=== PATIENT | female | born 1950 | race Caucasian/White ===

== ENCOUNTER 2023-03-15 07:41 | Outpatient (CLI) | payer MEDICARE, SELFPAY | END 2023-03-15 07:42 | disposition home or self-care (01) | LOC: ANHAUDASC 07:43 | PROVIDERS: PCP Internal Medicine; Visit Provider Clinical Nurse Specialist | DX: H90.3 Sensorineural hearing loss, bilateral (principal) | CPT/HCPCS: 92557; 92567 ==

== ENCOUNTER 2023-10-09 09:07 | Outpatient (CLI) | payer MEDICARE, SELFPAY ==
--- NOTE | ~2023-10-09 | XR_ITS ---
Left foot Technique: AP and lateral views were obtained. Clinical History: Pain Findings: No acute fracture or dislocation is seen. Osseous alignment is anatomic. Joint spaces are p reserved without erosive or degenerative change. Soft tissues are unremarkable. Impression: Unremarkable left foot radiographs. Reviewed, dictated and finalized at [facility]. Impression: Unremarkable left foot radiographs.
--- NOTE | ~2023-10-09 | XR_ITS ---
XR foot RT 2V Ordering provider: Bing Lau APRN History: . Pain and stifness, 1st digit into foot, no known injury . Comparison: None. FINDINGS: BONES: No acute fracture or dislocation. JOINT SPACES: Mild osteoarthritic changes of the facets metatarsophalangeal joint. No tarsal coalitio n. SOFT TISSUES: Minimal soft tissue swelling is seen over the first metatarsophalangeal joint. No erosi on seen. IMPRESSION: No acute osseous abnormality of the right foot. Mild osteoarthritic changes of the first metatarsopha langeal joint. Reviewed, dictated and finalized at [facility]. IMPRESSION: No acute osseous abnormality of the right foot. Mild osteoarthritic changes of the first metatarsophalangeal joint.
[2023-10-09 20:18] LABS: Uric Acid 7.6 mg/dL (2.5-7.5)
== END 2023-10-09 09:08 | disposition home or self-care (01) ==
PROVIDERS: PCP Nurse Practitioner Adult Health; Visit Provider Nurse Practitioner Adult Health
DX: M19.071 Primary osteoarthritis, right ankle and foot (principal); M79.672 Pain in left foot
CPT/HCPCS: 36415; 73620; 84550

== ENCOUNTER 2024-05-27 07:52 | Outpatient (CLI) | payer MEDICARE, SELFPAY ==
[2024-05-27 20:07] LABS: Basophils Percent Auto 0.5 % (0.2-1.2); Eosinophils Absolute Auto 0.2 K/mm3 (0-0.3); Eosinophils Percent Auto 2.4 % (0-4.4); Hematocrit 41.1 % (37.0-47.0); Hemoglobin 13.4 g/dL (12.0-15.0); Immature Granulocyte Absolute 0.01 K/mm3 (0.00-0.031); Immature Granulocyte Percent A 0.1 % (0-0.5); Lymphocytes Absolute Auto 2.94 K/mm3 (0.9-3.2); Lymphocytes Percent Auto 39.7 % (18.3-44.2); Mean Corpuscular HGB Conc 32.6 g/dl (32-36); Mean Corpuscular Hemoglobin 32.4 pg (26-34); Mean Corpuscular Volume 99.5 fl (80-100); Mean Platelet Volume 10.8 fl (7.4-10.4); Monocytes Absolute Auto 0.6 K/mm3 (0.1-0.6); Monocytes Percent Auto 7.6 % (2.6-8.5); Neutrophils Absolute Auto 3.7 K/mm3 (1.3-6.7); Neutrophils Percent Auto 49.7 % (45.5-73.1); Platelet Count Result 228 k/mm3 (150-375); Red Blood Count 4.13 M/mm3 (4.2-5.4); Red Cell Distribution Width 13.1 % (11.5-14.5); White Blood Count 7.4 K/mm3 (4.5-10.0)
[2024-05-27 20:17] LABS: Alanine Aminotransferase 26 U/L (6-35); Albumin Level 4.2 g/dL (3.5-5.1); Alkaline Phosphatase 70 U/L (38-126); Anion Gap 11 mmol/L (4-12); Aspartate Amino Transferase 43 U/L (14-36); Blood Urea Nitrogen 16 mg/dL (7-17); Calcium 9.5 mg/dL (8.4-10.2); Carbon Dioxide 23 mmol/L (22-30); Chloride 105 mmol/L (98-107); Cholesterol 221 mg/dL (0-200); Estimated Glomerular Filt Rate 60; Glucose 104 mg/dL (65-110); HDL Direct 53 mg/dL; Magnesium 2.3 mg/dL (1.6-2.3); Potassium 4.8 mmol/L (3.4-5.0); Sodium 139 mmol/L (137-145); Triglycerides 150 mg/dL (<150)
[2024-05-27 20:27] LABS: LDL Cholesterol Direct 125 mg/dL
[2024-05-27 21:23] LABS: Lactate Dehydrogenase 105 U/L (120-246)
[2024-05-28 07:12] LABS: Total Triiodothyronine (T3) 1.05 NG/ML (0.97-1.69)
--- OUTSIDE RECORDS SUMMARY | 2024-05-29 15:51 | XMS_ITS | Patient Health Summary ---
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 This disclosure is being madepursuant to the Care Everywhere program and may not contain all information available regarding this patient. Last updated 18.[facility] Allergies * Morphine(Nausea and/or Vomiting) Medications * Be aware that medications may not be up to date on this document. Alwaysverify current medications with the patient. * lisinopril (PRINIVIL; ZESTRIL) 20 MG tablet(Started 05/16/2019) Take 1 (one) tablet by mouth once daily * lovastatin (MEVACOR) 20 MG tablet(Started 05/16/2019) Take 1 (one) tablet by mouth once daily * aspirin EC (Ecotrin) 81 MG tablet(Started 06/15/2022) Take 1 (one) tablet by mouth once daily * Cholecalciferol 25 MCG (1000 UT) once daily * pantoprazole EC (Protonix) 40 MG tablet(Started 12/26/2022) * allopurinol (Zyloprim) 100 MG tablet(Started 12/03/2023) Take 1 (one) tablet by mouth once daily * metoprolol succinate XL 24hr (Toprol XL) 25 MG tablet(Started 12/06/2022) * meloxicam (Mobic) 15 MG tablet(Started 01/08/2024) Take 1 (one) tablet by mouth once daily 5 refills by 01/07/2025 Active Problems Problem Noted Date Diagnosed Date CLL (chronic lymphocytic leukemia) 05/18/2020 Coronary artery disease 04/26/2020 Chronic viral hepatitis B 04/23/2020 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 GERD (gastroesophageal reflux disease) 0 Dyslipidemia 06/08/2016 Hypertension 06/08/2016 Social History Tobacco Use Types Packs/Day Years Used Date Smoking Tobacco: Former Cigarettes 2 20 Smokeless Tobacco: Never Tobacco Cessation:Counseling Given: Not Answered Comments:QUIT 30 YEARS AGO Alcohol Use Standard Drinks/Week Comments Yes 12 (1 standard drink = 0.6 oz pu re alcohol) 2-3 beers daily PHQ-2 Answer Date Recorded Patient Health Questionnaire-2 Score 2 01/08/2024 Sex and Gender Information Value Date Recorded Sex Assigned at Female 06/25/2023 1:33 PM MAINTENANCE AND ENGINEERING MANAGER Gender Identity Female 06/25/2023 1:33 PM MAINTENANCE AND ENGINEERING MANAGER Sexual Orientation Straight 06/25/2023 1: 33 PM MAINTENANCE AND ENGINEERING MANAGER Last Filed Vital Signs Vital Sign Reading Time Taken Comments Blood Pressure 125/79 06/25/2023 1:17 PM MAINTENANCE AND ENGINEERING MANAGER Pulse 73 06/25/2023 1:17 PM MAINTENANCE AND ENGINEERING MANAGER Temperature 36.6 ??C (97.8 ??F) 06/25/2023 1:17 PM CS T Respiratory Rate 12 07/03/2022 1:09 PM MAINTENANCE AND ENGINEERING MANAGER Oxygen Saturation 99% 06/25/2023 1:17 PM MAINTENANCE AND ENGINEERING MANAGER Inhaled Oxygen Concentration - - Weight 75.3 kg (166 lb) 01/08/2024 2:52 PM CDT Height 162.6 cm (5' 4 ) 01/08/2024 2:52 PM CDT Body Mass Index 28.49 01/08/2024 2:52 PM CDT Procedures * HEPATITIS B SURFACE ANTIGEN CONFIRM RFLXED(Performed 06/27/2021) Performed for Chronic viral hepatitis B, Fatty liver (EtOH + COLÓN risks), Encounter for screening for other viral diseases * HEPATITIS B DNA QUANT(Performed 06/27/2021) Performed for Chronic viral hepatitis B, Fatty liver (EtOH + COLÓN risks) * HEPATITIS C ANTIBODY(Performed 06/27/2021) Performed for Chronic viral hepatitis B, Fatty liver (EtOH + COLÓN risks) * HEPATITIS B SURFACE ANTIBODY(Performed 06/27/2021) Performed for Chronic viral hepatitis B, Fatty liver (EtOH + COLÓN risks), Encounter for screening for other viral diseases * HEPATITIS B SURFACE ANTIGEN W RFLX CONFIRMATION(Performed 06/27/2021) Performed for Chronic viral hepatitis B, Fatty liver (EtOH + COLÓN risks), Encounter for screening for other viral diseases * HEPATITIS A ANTIBODY(Performed 06/27/2021) Performed for Chronic viral hepatitis B, Fatty liver (EtOH + COLÓN risks) * ALPHA FETOPROTEIN BLOOD TUMOR MARKER(Performed 06/27/2021) Performed for Chronic viral hepatitis B, Fatty liver (EtOH + COLÓN risks) * PT-INR [facility](Performed 06/27/2021) Performed for Chronic viral hepatitis B, Fatty liver (EtOH + COLÓN risks) * COMPREHENSIVE METABOLIC PANEL(Performed 06/27/2021) Performed for Chronic viral hepatitis B, Fatty liver (EtOH + COLÓN risks) * CBC W AUTO DIFFERENTIAL(Performed 06/27/2021) Performed for Chronic viral hepatitis B, Fatty liver (EtOH + COLÓN risks) * NEEDLE BIOPSY, LIVER(Performed 05/25/2020) * PATHOLOGY TISSUE(Performed 05/25/2020) Performed for Fatty liver * BIOPSY LIVER (NEEDLE/PERCUTANEOUS)(Performed 05/25/2020) Performed for Fatty liver * FLOW CYTOMETRY TISSUE PANEL(Performed 05/17/2020) Performed for Localized swelling, mass and lump, neck * HEPATITIS B DNA QUANT(Performed 04/26/2020) Performed for Chronic hepatitis, unspecified * [id number]-[id number] BLOOD PHENOTYPING PANEL(Performed 04/26/2020) Performed for Fatty liver (EtOH + COLÓN risks) * TRANSFERRIN(Performed 04/26/2020) Performed for Fatty liver (EtOH + COLÓN risks) * IRON BLOOD(Performed 04/26/2020) Performed for Fatty liver (EtOH + COLÓN risks) * ALPHA FETOPROTEIN BLOOD TUMOR MARKER(Performed 04/26/2020) Performed for Chronic hepatitis, unspecified , Fatty liver (EtOH + COLÓN risks) * BILIRUBIN DIRECT(Performed 04/26/2020) Performed for Fatty liver (EtOH + COLÓN risks) * PT-INR [facility](Performed 04/26/2020) Performed for Fatty liver (EtOH + COLÓN risks) * COMPREHENSIVE METABOLIC PANEL(Performed 04/26/2020) Performed for Fatty liver (EtOH + COLÓN risks) * CBC W AUTO DIFFERENTIAL(Performed 04/26/2020) Performed for Fatty liver (EtOH + COLÓN risks) * HEPATITIS DELTA ANTIBODY(Performed 04/26/2020) Performed for Fatty liver (EtOH + COLÓN risks) * NM LIVER ELASTOGRAPHY(Performed 04/26/2020) Performed for Fatty liver (EtOH + COLÓN risks), Chronic hepatitis, unspecified * NM LIVER ELASTOGRAPHY(Performed 11/22/2018) Performed for Chronic viral hepatitis B without coma and with delta agent (HCC) Results * PT-INR [facility] (06/27/2021 2:54 PM MAINTENANCE AND ENGINEERING MANAGER) Only the most recent of2 resultswithin the time period is included. PT 12.7 12.1 - 14.8 Seconds 06/27/2021 3:38 PM MAINTENANCE AND ENGINEERING MANAGER [facility] INR 1.0 See Comment 06/27/2021 3:38 PM MAINTENANCE AND ENGINEERING MANAGER [facility] Comment:The suggested therap eutic range for standard coumadin (warfarin) therapy is an INR of 2.0-3.0. For high-risk patients (Mechanical Mitral Valve Prosthesis, etc.), the suggested prophylactic therapeutic range is an INR of 2.5-3.5. Blood BLOOD SPECIMEN / Unknown Lab Venipuncture / Unknown 06/27/2021 2:54 PM MAINTENANCE AND ENGINEERING MANAGER 06/27/2021 3:20 PM MAINTENANCE AND ENGINEERING MANAGER Wesley Johnson MD LAB - COAG ULATION ORDERABLES Performing Organization Address [facility]/State/ZIP Co de Phone Number [facility] [address] [address], [facility] [phone] * (ABNORMAL) HEPATITIS B SURFACE ANTIGEN CONFIRM RFLXED (06/27/2021 2:54 PM MAINTENANCE AND ENGINEERING MANAGER) Hepatitis B Virus Surface Antigen Confirm Confirmed Reactive(A) Not Confirmed 06/28/2021 12:42 PM MAINTENANCE AND ENGINEERING MANAGER [facility] Blood BLOOD SPECIMEN / Unknown Lab Venipuncture / Unknown 06/27/2021 2:54 PM MAINTENANCE AND ENGINEERING MANAGER 06/27/2021 3:20 PM MAINTENANCE AND ENGINEERING MANAGER Wesley Johnson MD LAB - CHEM ISTRY ORDERABLES [facility] [id number] [place] [address], [facility] [phone] * (ABNORMAL) HEPATITIS B DNA QUANT (06/27/2021 2:54 PM MAINTENANCE AND ENGINEERING MANAGER) Only the most recent of2 resultswithin the time period is included. HBV Qnt by NAAT Interp Detected (A) Not Detected 06/30/2021 8:26 PM MAINTENANCE AND ENGINEERING MANAGER [employer] ([facility]) Comment: INTERPRETIVE INFORMATION: HBV by Quantitative NAAT Normal range for this assay is Not Detected . The quantitative range of this assay is 1.00-9.00 log IU/mL (10-1,000,000,000 IU/mL). An interpretation of Not Detected does not rule out the presence of inhibitors in the patient specimen or HBV DNA concentration below the level of detection of the test. Care should be taken when interpreting any single viral load determination. This assay should not be used for blood donor screening, associated re-entry protocols, or for screening Human Cell, Tissues and Cellular Tissue-Based Products (HCT/P). HBV Qnt by NAAT IU/mL 178 IU/mL 06/30/2021 8:26 PM MAINTENANCE AND ENGINEERING MANAGER [employer] ([facility]) HBV Qnt by NAAT log IU/mL 2.25 log IU/mL 06/30/2021 8:26 PM MAINTENANCE AND ENGINEERING MANAGER [employer] ([facility]) Comment: Performed by [employer], [address] [place] [address] [email or web address], Gely Salgado MD, Lab. Director Blood BLOOD SPECIMEN / Unknown Lab Venipuncture / Unknown 06/27/2021 2:54 PM MAINTENANCE AND ENGINEERING MANAGER 06/27/2021 3:20 PM MAINTENANCE AND ENGINEERING MANAGER Wesley Johnson MD LAB - CHEM ISTRY ORDERABLES [employer]) [address] * ALPHA FETOPROTEIN BLOOD TUMOR MARKER (06/27/2021 2:54 PM MAINTENANCE AND ENGINEERING MANAGER) Only the most recent of2 resultswithin the time period is included. [facility] Alpha-Fetoprote in Tumor Marker 6.1 <=8.3 ng/mL 06/27/2021 4:09 PM [facility] Comment: AFP values will vary depending on testing procedure used. Results are not comparable across different methods. AFP values obtained by [facility] using an Mccauley Alinity Immunoassay. Blood BLOOD SPECIMEN / Unknown Lab Venipuncture / Unknown 06/27/2021 2:54 PM MAINTENANCE AND ENGINEERING MANAGER 06/27/2021 3:27 PM MAINTENANCE AND ENGINEERING MANAGER Wesley Johnson MD LAB - CHEM ISTRY ORDERABLES [address] [address], [facility] [phone] * (ABNORMAL) CBC WITH DIFFERENTIAL (06/27/2021 2:54 PM MAINTENANCE AND ENGINEERING MANAGER) Only the most recent of2 resultswithin the time period is included. [facility] WBC 8.4 3.5 - 10.5 10? 3 /uL 06/27/2021 3:36 PM [facility] RBC 4.42 3.80 - 5.20 10? 6 /uL 06/27/2021 3:36 PM [facility] Hemoglobin 14.4 12.0 - 15.6 g/dL 06/27/2021 3:36 PM [facility] Hematocrit 43.1 35.0 - 45.0 % 06/27/2021 3:36 PM [facility] MCV 97.5 80.7 - 98.3 fL 06/27/2021 3:36 PM [facility] MCH 32.6 26.7 - 34.0 pg 06/27/2021 3:36 PM [facility] MCHC 33.4 30.8 - 35.9 g/dL 06/27/2021 3:36 PM [facility] Platelet Count 219 150 - 400 10? 3 /uL 06/27/2021 3:36 PM [facility] RDW-SD 45.2 36.0 - 50.0 fL 06/27/2021 3:36 PM [facility] RDW-CV 12.7 11.2 - 14.8 % 06/27/2021 3:36 PM [facility] MPV 10.3 9.4 - 12.9 fL 06/27/2021 3:36 PM [facility] nRBC Absolute 0.00 0 10? 3 /uL 06/27/2021 3:36 PM [facility] nRBC Auto 0.0 0 /100 WBC 06/27/2021 3:36 PM [facility] Neutrophils % 43.9 35.0 - 70.0 % 06/27/2021 3:36 PM [facility] Lymphocytes % 45.8(H) 20.0 - 43.0 % 06/27/2021 3:36 PM [facility] Monocytes % 8.4 5.0 - 13.0 % 06/27/2021 3:36 PM [facility] Eosinophils % 1.3 0.0 - 6.0 % 06/27/2021 3:36 PM [facility] Basophil % 0.5 0.0 - 2.0 % 06/27/2021 3:36 PM [facility] Neutrophils Absolute 3.7 1.6 - 7.0 10? 3 /uL 06/27/2021 3:36 PM [facility] Lymphocyte Absolute 3.8 1.1 - 3.9 10? 3 /uL 06/27/2021 3:36 PM [facility] Monocytes Absolute 0.70 0.26 - 1.07 10? 3 /uL 06/27/2021 3:36 PM [facility] Eosinophils Absolute 0.11 0.00 - 0.47 10? 3 /uL 06/27/2021 3:36 PM [facility] Basophils Absolute 0.04 0.00 - 0.08 10? 3 /uL 06/27/2021 3:36 PM [facility] Immature Granulocytes % 0.1 0.0 - 1.0 % 06/27/2021 3:36 PM [facility] Immature Granulocytes Absolute 0.01 06/27/2021 3:36 PM [facility] Blood BLOOD SPECIMEN / Unknown Lab Venipuncture / Unknown 06/27/2021 2:54 PM MAINTENANCE AND ENGINEERING MANAGER 06/27/2021 3:27 PM MAINTENANCE AND ENGINEERING MANAGER Wesley Johnson MD LAB - ARSEN TOLOGY ORDERABLES [facility] [address] [place] [address], [facility] [phone] * (ABNORMAL) COMPREHENSIVE METABOLIC PANEL (06/27/2021 2:54 PM MAINTENANCE AND ENGINEERING MANAGER) Only the most recent of2 resultswithin the time period is included. BUN 12 7 - 26 mg/dL 06/27/2021 3:54 PM [facility] Creatinine 1.00(H) 0.56 - 0.96 mg/dL 06/27/2021 3:54 PM [facility] Sodium 141 136 - 145 mmol/L 06/27/2021 3:54 PM [facility] Potassium 4.6(H) 3.5 - 4.5 mmol/L 06/27/2021 3:54 PM [facility] Chloride 107 98 - 107 mmol/L 06/27/2021 3:54 PM [facility] CO2 25 22 - 29 mmol/L 06/27/2021 3:54 PM [facility] Glucose 101 70 - 115 mg/dL 06/27/2021 3:54 PM [facility] Calcium 9.8 8.4 - 10.2 mg/dL 06/27/2021 3:54 PM [facility] Protein Total 7.1 6.0 - 8.3 g/dL 06/27/2021 3:54 PM [facility] Albumin 4.0 3.4 - 5.0 g/dL 06/27/2021 3:54 PM [facility] Bilirubin Total 0.8 0.2 - 1.2 mg/dL 06/27/2021 3:54 PM [facility] Alkaline Phosphatase 73 40 - 150 U/L 06/27/2021 3:54 PM [facility] ALT 45 5 - 55 U/L 06/27/2021 3:54 PM [facility] AST 38(H) 5 - 34 U/L 06/27/2021 3:54 PM [facility] Anion Gap 14 8 - 18 06/27/2021 3:54 PM [facility] BUN/Creatinine Ratio 12 7 - 23 06/27/2021 3:54 PM [facility] Osmolality Calculated 292 270 - 300 mOsm/kg 06/27/2021 3:54 PM [facility] Albumin/Globulin Ratio 1.3 1.1 - 2.3 06/27/2021 3:54 PM [facility] eGFR by CKD-EPI 60(L) >=90 mL/min/1.7 3 m2 06/27/2021 3:54 PM [facility] Blood BLOOD SPECIMEN / Unknown Lab Venipuncture / Unknown 06/27/2021 2:54 PM MAINTENANCE AND ENGINEERING MANAGER 06/27/2021 3:27 PM [facility] Wesley Johnson MD LAB - CHEM ISTRY ORDERABLES [facility] [address] [place] [address], [facility] [phone] * HEPATITIS B SURFACE ANTIBODY (06/27/2021 2:54 PM [facility]) Hepatitis B Virus Surface Antibody Non-react dickson Non-react dickson 06/27/2021 4:17 PM [facility] Comment: < 8 mIU/mL Hepatitis B surface Antibody (HBsAb). Nonreactive for HBsAb - individual is considered not immune to Hepatitis B Virus infection. Hepatitis B Surface Antibody Quantitative 0.2 <8.0 mIU/mL 06/27/2021 4:17 PM [facility] Comment: Hepatitis B Surface Antibody Numeric Result Interpretation: ? Nonreactive: ?<8.0 mIU/mL ? Indeterminate: ??8.0 - 12.0 mIU/mL ? Reactive: ?>12.0 mIU/mL ? Blood BLOOD SPECIMEN / Unknown Lab Venipuncture / Unknown 06/27/2021 2:54 PM MAINTENANCE AND ENGINEERING MANAGER 06/27/2021 3:20 PM MAINTENANCE AND ENGINEERING MANAGER Wesley Johnson MD LAB - CHEM ISTRY ORDERABLES Performing Organization Address City/[facility]/ZIP Co de Phone Number [address] [address], [place] [phone] * (ABNORMAL) HEPATITIS B SURFACE ANTIGEN W RFLX CONFIRMATION (06/27/2021 2:54 PM MAINTENANCE AND ENGINEERING MANAGER) Hepatitis B Virus Surface Antigen See Note(A) Non-react dickson 06/27/2021 4:58 PM MAINTENANCE AND ENGINEERING MANAGER [facility] Comment:Hepatitis B Surface Antigen confirmatory results to follow. Blood BLOOD SPECIMEN / Unknown Lab Venipuncture / Unknown 06/27/2021 2:54 PM MAINTENANCE AND ENGINEERING MANAGER 06/27/2021 3:20 PM MAINTENANCE AND ENGINEERING MANAGER Wesley Johnson MD LAB - CHEM ISTRY ORDERABLES Performing Organization Address [facility] Co de Phone Number [address] [address], [place] [phone] * HEPATITIS C ANTIBODY (06/27/2021 2:54 PM MAINTENANCE AND ENGINEERING MANAGER) Hepatitis C Antibody Non-react dickson Non-reac tive 06/27/2021 4:17 PM MAINTENANCE AND ENGINEERING MANAGER [facility] Comment:Hepatitis C Antibody screen indicates no serologic evidence of past or current infection with Hepatitis C Virus. Patients with unexplained liver disease who are immunocompromised or suspected of having acute Hepatitis C infection may benefit from Nucleic Acid Test (SALINAS) for Hepatitis C Viral RNA to confirm Hepatitis C status. Blood BLOOD SPECIMEN / Unknown Lab Venipuncture / Unknown 06/27/2021 2:54 PM MAINTENANCE AND ENGINEERING MANAGER 06/27/2021 3:20 PM MAINTENANCE AND ENGINEERING MANAGER Wesley Johnson MD LAB - CHEM ISTRY ORDERABLES Performing Organization Address City/[facility]/ZIP Co de Phone Number [address] [address], [place] [phone] * (ABNORMAL) HEPATITIS A ANTIBODY (06/27/2021 2:54 PM MAINTENANCE AND ENGINEERING MANAGER) Hepatitis A Virus Antibody Total Positive( A) Negative 06/29/2021 6:53 PM MAINTENANCE AND ENGINEERING MANAGER [employer] ([facility]) Comment: The positive anti-HAV is consistent with recent or remote Hepatitis A infection or antibody response to HAV vaccination. False positive anti-HAV can occur. Performed by [employer], [address] [place] [address] [email or web address], Gely Salgado MD, Lab. Director Blood BLOOD SPECIMEN / Unknown Lab Venipuncture / Unknown 06/27/2021 2:54 PM MAINTENANCE AND ENGINEERING MANAGER 06/27/2021 3:20 PM MAINTENANCE AND ENGINEERING MANAGER Wesley Johnson MD LAB - CHEM ISTRY ORDERABLES Performing Organization Address City/State/[facility] Co de Phone Number [employer] ([facility]) [address] [place] [address], [facility] * NEEDLE BIOPSY, LIVER (05/25/2020 9:18 AM MAINTENANCE AND ENGINEERING MANAGER) Narrative [facility] - 05/25/2020 9:18 AM MAINTENANCE AND ENGINEERING MANAGER Wesley Henderson MD ? 05/25/2020 ??9:19 AM ??PERCUTANEOUS LIVER BIOPSY PROCEDURE NOTE Patient Name: Michelle Sinha ??Date: 05/25/2020 Time: 9:19 AM Attending: Wesley Henderson MD Fellow: None Diagnosis/Indication: ??COLÓN risks, EtOH use, chronic HBV, elevated liver stiffness Location: Endoscopy Admission Status: Outpatient PERMIT The indications, risks, benefits and alternatives, as described below, were explained to the patient who agreed to proceed. Signed, informed consent was obtained. ?? Possible risks of liver biopsy include: ? Bleeding- risk of hemodynamically significant bleed requiring blood transfusion or surgery is approximately 1:1,000 ?? Perforation (gallbladder, lung, bowel, kidney, other) the risk of perforation is less than 1:1,000 ?? Severe pain after biopsy, including referred shoulder pain; the risk of pain requiring analgesics is approximately 1:4. PROCEDURE DESCRIPTION The patient was placed in the supine position. The liver was palpated and percussed and an appropriate intercostal location was identified. Ultrasound Limited abdominal ultrasound for localization was performed. Comments: The liver was noted to be in a good position. The area was then prepped and draped in the usual sterile manner. 15 ml 1% lidocaine was used as a local anesthetic. Intravenous anxiolytic Versed 0 mg IV ? Fentanyl 0 mcg IV Biopsy performed after an endoscopic procedure: No. Instrument 16 G BioPince set at 33 mm (27 mm core) Adequate tissue was obtained using 1 pass from the right lobe. Procedure tolerated Well. Additional Comments ?? Post procedure pain medication Oxycodone/acetaminophen 5/325 x 1-2 tabs prn Fentanyl 50 mcg IV q 30 min prn Immediate procedure complications ?? Tissue was sent for: Routine histology. Fixation time: approximately 10 minutes before 9:19 AM. Follow-up appointment: As scheduled. I personally performed this procedure. I was present for all portions of this procedure. Wesley Henderson MD Wesley Johnson MD GI PROCEDU RE ORDERABLES [facility] * PATHOLOGY TISSUE (05/25/2020 9:17 AM MAINTENANCE AND ENGINEERING MANAGER) Case Report Surgical Pathology Report ? Case: [id number] ? Authorizing Provider: ??Wesley Henderson MD ? Collected: ? 05/25/2020 09:17 AM ? Ordering Location: ? [facility] END[facility] ?Received: ?05/25/2020 11:08 AM ? Pathologist: ? Susanne Dueñas MD ? Specimen: ?Liver, liver biopsy ? 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 There is moderate lobular inflammation (grade 2, 2-4 foci/20x field). Rare ballooned hepatocytes are present (grade 1) but classic Ivett-Denk bodies are not readily identified. Portal tracts are remarkable for a monomorphic lymphocytic infiltrate of small mature-appearing lymphocytes. The clinical history of HBV is noted, though the typical lymphocytic infiltrate with interface activity seen in active viral hepatitis is not appreciated; an immunostain for HBV surface antigen is negative. Additional immunostains were performed to assess the monomorphic portal infiltrate, and show the cells to be mostly CD20+ B cells, with only scattered CD3 + T cells; CD5 is positive in the B cell population (not simply expressed on T cells). Cyclin D1 and SOX11 are negative. 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 Dr. Yoon has reviewed the portal involvement by lymphoma and agrees with the diagnosis. The trichrome stain highlights zone 3 perisinusoidal fibrosis, somewhat dense in areas. Portal tracts are expanded by the lymphoid infiltrate, but true periportal extension is not seen. The reticulin stain shows foci of condensation and reticulin loss due to steatosis. The PAS-D stain is negative for dlvxx-9-kgxnriehlyd globules. The iron stain is negative. The steatosis, lobular inflammation, and ballooning, along with characteristic central perisinusoidal fibrosis are diagnostic for steatohepatitis--alco holic or nonalcoholic. In the clinical context of COLÓN, the NAFLD activity score would be 4/8, stage 1b. 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 05/27/2020 3:51 PM [facility] Clinical History The patient is a 69 year old woman with a history HBV, alcohol use, COLÓN risk and increased liver stiffness on fibroscan. There is also a history of clonal CD5+ B cells in a neck mass. 05/27/2020 3:51 PM [facility] Gross Description The requisition and specimen(s) are labeled with the patient's name, Michelle Sinha. Received in formalin, specimen A , is a brown-hickman tissue core measuring 2.8 x 0.1 x 0.1 cm. Specimen is submitted in toto in cassette A1. OW 05/27/2020 3:51 PM [facility] Disclaimer The performance characteristics of all immunohistochemical and indirect immunofluorescence stains (if any) cited in this report were determined by the Histopathology Laboratory of [facility]. Some of these tests were developed by our own laboratory and have not been cleared or approved by the US Food and Drug Administration. The FDA does not require this test to go through premarket FDA review. These tests are used for clinical purposes. They should not be regarded as investigational or for research. This laboratory is certified under the Clinical Laboratory Improvement Amendments (CLIA) as qualified to perform high complexity clinical laboratory testing. This case has been personally reviewed and interpreted by the attending (teaching) pathologist. 05/27/2020 3:51 PM [facility] Embedded Images 05/27/2020 3:51 PM [facility] Biopsy, Needle ENTIRE LIVER / Unknown 05/25/2020 9:17 AM MAINTENANCE AND ENGINEERING MANAGER 05/25/2020 11:08 AM MAINTENANCE AND ENGINEERING MANAGER Comment:Pre-op diagnosis: K76.0 Fatty liver (EtOH + COLÓN risks) Wesley Johnson MD LAB - PATH OLOGY/CYTOLOGY ORDERABLES [facility] [address] [place] [address], [facility] [phone] * FLOW CYTOMETRY TISSUE PANEL (05/17/2020 10:10 AM [facility]) Case Report Flow Cytometry ?Case: [id number] ? Authorizing Provider: ??Gilmer Soto MD ? Collected: ? 05/17/2020 10:10 AM ? Ordering Location: ? [facility] ? Received: ?05/17/2020 02:16 PM ? Pathologist: ? Davey Moses MD ? Specimen: ?Tissue, Soft Tissue Mass ? 1 9:41 AM [facility] Final Diagnosis Tissue, soft tissue mass, neck, flow cytometry: - Clonal kappa restricted CD5+ B-cell population detected (~58% of total events) 1 9:41 AM [facility] Flow Cytometry Interpretation Viability: 100%. Flow cytometry of the neck soft tissue mass reveals a clonal, kappa light chain restricted B-cell population co-expressing CD5. CD23 and CD10 are not expressed. This immunophenotype may indicate a mantle cell lymphoma immunophenotype. CD3+ T-lymphocytes show no you T cell antigen aberrancies and have a CD4 to CD8 ratio within normal limits. Natural killer cells are not increased. No significant CD45 dim population is identified. CD34+ blasts are not increased. Correlation with morphology (if submitted), clinical and laboratory data is recommended for final diagnosis and classification. Furthermore, FISH studies for t(11;14) and/or immunohistochemistry for cyclin D1 are recommended to assess the possibility of mantle cell lymphoma. A Rowell-Giemsa stained cytospin from the flow cytometry specimen was examined for internal quality systems specialist purposes. 9:41 AM [facility] Flow Cytometry Results Differential Result Comment Flow Cell Count /uL 1,000 Total Viability % 100.0 Lymphocytes % 96 Dim CD45 Region % 0 Monocytes % 1 Granulocytes % 2 1 9:41 AM [facility] Reason for test Localized swelling, mass and lump, neck 784.2 1 9:41 AM [facility] Client Specimen ID # [id number] 9:41 AM [facility] Number of markers 16 were performed. A-2 Flow CD3 A-4 Flow CD10 A-6 Flow CD20 A-7 Flow CD23 A-12 Flow CD2 A-13 Flow CD4 A-16 Flow CD1a A-3 Flow CD5 A-5 Flow CD19 A-8 Flow CD34 A-9 Flow CD45 A-14 Flow CD7 A-15 Flow CD8 A-17 Flow CD30 A-10 Rosebud+CD19+ A-11 Lambda+CD19+ 9:41 AM [facility] Disclaimer Test performed at [facility], [address], [place], [address]. *The established laboratory minimum viability is 70%. Values below the minimum may result in the failure to find an abnormal population of cells. This test was developed and its performance characteristics determined by the Flow Cytometry Laboratory. It has not been cleared by the [place] Food and Drug Administration (FDA). The FDA has determined that such clearance or approval is not necessary. This test is used for clinical purposes. It should not be regarded as investigational or for research. This laboratory is regulated under the Clinical Laboratory Improvement Amendments of 1998 (CLIA) as a qualified to perform high complexity clinical testing. 1 9:41 AM MAINTENANCE AND ENGINEERING MANAGER [facility] Embedded Images 1 9:41 AM MAINTENANCE AND ENGINEERING MANAGER [facility] Pathology/Cytolo gy TISSUE SPECIMEN / Unknown 05/17/2020 10:10 AM MAINTENANCE AND ENGINEERING MANAGER 05/17/2020 2:16 PM MAINTENANCE AND ENGINEERING MANAGER Gilmer Soto MD LAB - PATHOLOGY/CYTO LOGY ORDERABLES [facility] [phone] * [id number] BLOOD PHENOTYPING PANEL (04/26/2020 2:42 PM MAINTENANCE AND ENGINEERING MANAGER) Zryjc-2-Yhwxwknnqa n Phenotype M1M2 04/28/2020 6:45 PM MAINTENANCE AND ENGINEERING MANAGER [facility] ([facility]) Comment: The patient appears to have a normal phenotype. All M alleles (including subtypes M1, M2, and M3) produce normal serum concentrations of tmaya-3-kbmodsgv inhibitor and are not associated with clinical disease. Caution in interpretation is advised if the patient has been transfused within the previous 21 days. Performed By: [facility] [address] [place] [address] Pipeline Gang Supervisor: Gely Salgado MD Fnjro-4-Efnjibvlpi n 150 90 - 200 mg/dL 04/28/2020 6:45 PM MAINTENANCE AND ENGINEERING MANAGER [employer] ([facility]) Comment:To convert to umol/L , multiply mg/dL by 0.185 Blood BLOOD SPECIMEN / Unknown Lab Venipuncture / Unknown 04/26/2020 2:42 PM MAINTENANCE AND ENGINEERING MANAGER 04/26/2020 3:03 PM MAINTENANCE AND ENGINEERING MANAGER Wesley Johnson MD LAB - CHEM ISTRY ORDERABLES Performing Organization Address City/[facility]/ZIP Co de Phone Number [facility] [employer] [facility]) [address] * TRANSFERRIN (04/26/2020 2:42 PM MAINTENANCE AND ENGINEERING MANAGER) [employer] 291 174 - 382 mg/dL 04/26/2020 3:29 PM MAINTENANCE AND ENGINEERING MANAGER [facility] Transferrin Saturation % 35 16 - 50 % 04/26/2020 3:29 PM MAINTENANCE AND ENGINEERING MANAGER [facility] Blood BLOOD SPECIMEN / Unknown Lab Venipuncture / Unknown 04/26/2020 2:42 PM MAINTENANCE AND ENGINEERING MANAGER 04/26/2020 3:03 PM MAINTENANCE AND ENGINEERING MANAGER Wesley Johnson MD LAB - CHEM ISTRY ORDERABLES [facility] [address] [place] [address], [place] [phone] * HEPATITIS DELTA ANTIBODY (04/26/2020 2:42 PM MAINTENANCE AND ENGINEERING MANAGER) [facility] Hepatitis Delta Virus Antibody Negative Negative 04/28/2020 2:46 PM MAINTENANCE AND ENGINEERING MANAGER [facility] ([facility]) Comment: No antibody to Hepatitis Delta agent was detected. Order anti-HDV testing only when Hepatitis B virus infection has been confirmed. INTERPRETIVE INFORMATION: Hepatitis Delta Ab Test developed and characteristics determined by [facility]. See Compliance Statement D: [employer] Performed by [facility], [address] [place], [place] [id number] [email or web address], Gely Salgado MD, Lab. Director Blood BLOOD SPECIMEN / Unknown Lab Venipuncture / Unknown 04/26/2020 2:42 PM MAINTENANCE AND ENGINEERING MANAGER 04/26/2020 3:02 PM MAINTENANCE AND ENGINEERING MANAGER Wesley Johnson MD LAB - CHEM ISTRY ORDERABLES [facility] ([facility]) [address] [place] [address], [facility] * IRON BLOOD (04/26/2020 2:42 PM MAINTENANCE AND ENGINEERING MANAGER) Iron 129 40 - 150 mcg/dL 04/26/2020 3:29 PM MAINTENANCE AND ENGINEERING MANAGER [facility] Blood BLOOD SPECIMEN / Unknown Lab Venipuncture / Unknown 04/26/2020 2:42 PM MAINTENANCE AND ENGINEERING MANAGER 04/26/2020 3:03 PM MAINTENANCE AND ENGINEERING MANAGER Wesley Johnson MD LAB - CHEM ISTRY ORDERABLES Performing Organization Address City/[facility]/ZIP Co de Phone Number [address] [address], [facility] [phone] * BILIRUBIN DIRECT (04/26/2020 2:42 PM MAINTENANCE AND ENGINEERING MANAGER) Bilirubin Conjugated 0.3 0.0 - 0.5 mg/dL 04/26/2020 3:29 PM MAINTENANCE AND ENGINEERING MANAGER [facility] Blood BLOOD SPECIMEN / Unknown Lab Venipuncture / Unknown 04/26/2020 2:42 PM MAINTENANCE AND ENGINEERING MANAGER 04/26/2020 3:02 PM MAINTENANCE AND ENGINEERING MANAGER Wesley Johnson MD LAB - CHEM ISTRY ORDERABLES Performing Organization Address [facility] Co de Phone Number [address] [address], [facility] [phone] * PROC FIBROSCAN (04/26/2020 1:17 PM MAINTENANCE AND ENGINEERING MANAGER) Narrative Wesley Henderson MD - 04/26/2020 1:17 PM MAINTENANCE AND ENGINEERING MANAGER Wesley Henderson MD ? 04/28/2020 ??2:00 PM Diagnosis: ELIANA RN verified patient not , no implanted devices and NPO for prior 3 hours. Vital signs taken, procedure explained and consent signed. Date of Exam: 04/26/2020 Liver Stiffness: (LSM, kPa) median: ??13.3 IQR (interquartile range): ?? 2.8 IQR/Median% (ideally < 30%): ??21 CAP (controlled attenuation parameter): ??313 Technical Difficulty: None Ordering Provider: Wesley Henderson MD Phone Fax Fibroscan interpretation: I have personally reviewed the Fibroscan report and associated tracings. The calculated Liver Stiffness Measurement (LSM, kPa) indicates that: The probability of advanced liver fibrosis is: moderate. The loss of ultrasound signal, (controlled attenuation parameter, CAP [dB/m]), indicates that the probability of hepatic steatosis is: high. Wesley Henderson MD The following criteria are used to indicate the probability of advanced (stage 3-4) fibrosis: < 7.0 kPa: low 7.0-8.9 kPa: low to moderate 9.0-14.9 kPa: moderate 15-20 kPa: high > 20 kPa: very high Liver stiffness > 20 kPa is also associated with a high probability of complications of portal hypertension including varices and ascites. Liver stiffness > 50 kPa is associated with a high risk of variceal bleeding. These interpretations are based on the following published data: Salinas PJ, Juan M M, Sherry M, et al. Accuracy of FibroScan controlled attenuation parameter and liver stiffness measurement in assessing steatosis and fibrosis in patients with nonalcoholic fatty liver disease. Gastroenterology 2019;156:4598-2276. Danika MS, Chele R, Van Pily ML, et al. Vibration-controlled transient elastography to assess fibrosis and steatosis in patients with nonalcoholic fatty liver disease. Clin Gastroenterol Hepatol 2019;17:156-163. Note: 1. Fibroscan cannot reliably identify earlier stages of fibrosis (ie distinguish F0 from F1 and F2) and thus a histologic stage cannot be predicted from the Fibroscan reading. 2. Assessing the likelihood of advanced fibrosis in patients with indeterminate liver stiffness measurement (LSM) by Fibroscan (e.g., 8-15 kPa) can be improved by also calculating the FIB4 score (Davyduke et al. Hepatology Communications 2019;3:4002-1719) or NAFLD Fibrosis score (Mcintosh et al. Clinical Gastroenterology and Hepatology 2019;17:6700-5843. from routine clinical data. 3. Liver stiffness can be increased by factors other than fibrosis including passive congestion, infiltrative processes, active alcoholism, biliary obstruction and marked inflammation. The interpretation of the Fibroscan result provided above may not have taken such clinical factors into account. Disease etiology also influences Fibroscan cutoff values for fibrosis stages and the following cutoffs have been proposed (Irene et al, Clin Gastro Hepatol 2015; 13:27-36): Cutoffs for Stage 3 and Stage 4 fibrosis respectively: Hepatitis B: >9 and >11.7 kPa Hepatitis C: >9.5 and >12.5 kPa HCV-HIV: >11 and >14 kPa Cholestatic liver diseases: >10 and >17.9 kPa NAFLD/COLÓN: >10 and >14 kPa CAP estimates of steatosis: normal <200 dB/m mild 200 to 250 dB/m moderate 250-290 dB/m substantial > 290 dB/m (Note that Fibroscan is not a quantitative measure of liver fat.) These criteria are estimates and may change as additional supporting data becomes available. [email or web address] Wesley Johnson MD PROCEDURE/ MINOR SURGICAL ORDERABLES * NM LIVER ELASTOGRAPHY (11/22/2018 4:44 PM CDT) Narrative Wesley Henderson MD - 11/22/2018 4:44 PM CDT Wesley Henderson MD ? 11/22/2018 ??4:44 PM Diagnosis: Hepatitis B RN verified patient not , no implanted devices and NPO for prior 3 hours. Vital signs taken, procedure explained and consent signed. Date of Exam: 11/20/2018 Liver Stiffness: (E, kPa) median: ??9.3 IQR (interquartile range): ?? 1.0 IQR/Median% (ideally < 30%): ??11 CAP (controlled attenuation parameter): ??354 Technical Difficulty: None Ordering Provider: Tawana Fernandes MD Fibroscan interpretation: I have personally reviewed the Fibroscan report and associated tracings. The calculated liver stiffness (E, kPa) indicates that: The probability of advanced liver fibrosis is: moderate. The loss of ultrasound signal, (controlled attenuation parameter, CAP [dB/m]), indicates that the probability of hepatic steatosis is: high. Wesley Henderson MD The following criteria are used to indicate the probability of advanced (stage 3-4) fibrosis: < 7.0 kPa: low 7.0-8.9 kPa: low to moderate 9.0-14.9 kPa: moderate 15-20 kPa: high > 20 kPa: very high Liver stiffness > 20 kPa is also associated with a high probability of complications of portal hypertension including varices and ascites. Liver stiffness > 50 kPa is associated with a high risk of variceal bleeding. Note: Liver stiffness is increased by factors other than fibrosis including passive congestion, infiltrative processes, active alcoholism, biliary obstruction and marked inflammation. The interpretation of the Fibroscan result provided above may not have taken such factors into account. Disease etiology also influences Fibroscan cutoff values for fibrosis stages and the following cutoffs have been proposed (Irene et al, Clin Gastro Hepatol 2015; 13:27-36): Cutoffs for Stage 3 and Stage 4 fibrosis respectively: Hepatitis B: >9 and >11.7 kPa Hepatitis C: >9.5 and >12.5 kPa HCV-HIV: >11 and >14 kPa Cholestatic liver diseases: >10 and >17.9 kPa NAFLD/COLÓN: >10 and >14 kPa CAP estimates of steatosis: normal <200 dB/m maybe present 200 to 250 dB/m moderate 250-300 dB/m substantial > 300 dB/m (Note that Fibroscan is not a quantitative measure of liver fat and the risk of NAFLD progression is unrelated to the degree of steatosis.) These criteria are estimates and may change as additional supporting data becomes available. [email or web address] Wesley Johnson MD PROCEDURE/ MINOR SURGICAL ORDERABLES Care Teams Stemming Machine Operator Relationship Specialty Start Date End Date Gabino Mckay MD [address] [place] [address] PCP - General Family Medicine 06/25/23
--- OUTSIDE RECORDS SUMMARY | 2024-05-29 15:51 | XMS_ITS | Clinical Summary ---
Author Organization [facility] Address [address] [place] [address] Care Team Providers Care Retail Service Technician Name Role Phone Gabino Mckay MD Primary Care Provider [phone] Source Comments [facility],non-owned Affiliates and Associated Physician Practices is amultiple site organization consisting of ambulatory clinics and hospital sitesin [place], [place], [place]. This disclosure is being madepursuant to the Care Everywhere program and may not contain all information available regarding this patient. Last updated 18.[facility] Allergies Active Allergy Reactions Criticality Noted Date Comments Morphine Nausea and/or Vomiting 05/25/2020 Medications * Be aware that medications may not be up to date on this document. Alwaysverify current medications with the patient. Medication Sig Dispensed Refills Start Date End Date Status lisinopril (PRINIVIL; ZESTRIL) 20 MG tablet Take 1 (one) tablet by mouth once daily 05/16/2019 Active lovastatin (MEVACOR) 20 MG tablet Take 1 (one) tablet by mouth once daily 05/16/2019 Active aspirin EC (Ecotrin) 81 MG tablet Take 1 (one) tablet by mouth once daily 06/15/2022 Active Cholecalciferol 25 MCG (1000 UT) once daily Active pantoprazole EC (Protonix) 40 MG tablet 12/26/2022 Active allopurinol (Zyloprim) 100 MG tablet Take 1 (one) tablet by mouth once daily 12/03/2023 Active metoprolol succinate XL 24hr (Toprol XL) 25 MG tablet 12/06/2022 Active meloxicam (Mobic) 15 MG tablet Take 1 (one) tablet by mouth once daily 30 tablet 5 01/08/2024 Active Active Problems Problem Noted Date Diagnosed Date CLL (chronic lymphocytic leukemia) 05/18/2020 Overview (06/27/2021): 05/17/20 neck node bx: Tissue, soft tissue mass, neck, flow cytometry: - Clonal kappa restricted CD5+ B-cell population detected (~58% of total events) Low grade, not being treated Coronary artery disease 04/26/2020 Overview (04/26/2020): MA and coronary stent about 2009. 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 Overview (05/27/2020): 09/10/17 Fibrotest F2 11/20/18 Fibroscan CAP 354, LSM 9.3 kPa 04/26/20 Fibroscan CAP 313, LSM 13.3 kPa 05/25/20 liver biopsy: COLÓN, stage 1b; also portal involvement with lymphoma GERD (gastroesophageal reflux disease) 0 Dyslipidemia 06/08/2016 [...] Sex Assigned at Female 06/25/2023 1:33 PM CUSTOMER CARE PROFESSIONAL Gender Identity Female 06/25/2023 1:33 PM CUSTOMER CARE PROFESSIONAL Sexual Orientation Straight 06/25/2023 1 :33 PM CUSTOMER CARE PROFESSIONAL Last Filed Vital Signs Vital Sign Reading Time Taken Comments Blood Pressure 125/79 06/25/2023 1:17 PM CUSTOMER CARE PROFESSIONAL Pulse 73 06/25/2023 1:17 PM CUSTOMER CARE PROFESSIONAL Temperature 36.6 ??C (97.8 ??F) 06/25/2023 1:17 PM CS T Respiratory Rate 12 07/03/2022 1:09 PM CUSTOMER CARE PROFESSIONAL Oxygen Saturation 99% 06/25/2023 1:17 PM CUSTOMER CARE PROFESSIONAL Inhaled Oxygen Concentration - - Weight 75.3 kg (166 lb) 01/08/2024 2:52 PM CDT Height 162.6 cm (5' 4 ) 01/08/2024 2:52 PM CDT Body Mass Index 28.49 01/08/2024 2:52 PM CDT Plan of Treatment Upcoming Encounters Date Type Department Care Team (Late st Contact Info) Description 06/23/2024 1:00 PM CUSTOMER CARE PROFESSIONAL Office Visit [facility] - GI [address] [place] [address], [place] [phone] Wesley Johnson MD [address] [place] [address] [place] [address] Health Maintenance Due Date Last Done Comments COLOGUARD (AGES 45-75) - COLON CA SCREENING 1948 COLON MONITORING 1948 COLONOSCOPY - COLON CA SCREENING 1948 CT COLONOGRAPHY - COLON CA SCREENING 1950 Colorectal Cancer Screening 1950 FIT - COLON CA SCREENING 1948 FLEX SIG - COLON CA SCREENING 1948 COVID-19 VACCINE (#1) 1953 DTAP/TDAP/TD VACCINES (1 - Tdap) 09/01/1967 PNEUMOCOCCAL VACCINE 50+ (1 of 2 - PCV) 09/01/1967 ZOSTER VACCINE (1 of 2) 09/01/1967 HEPATITIS B VACCINE (1 of 3 - Risk 3-dose series) 2008 Respiratory Syncytial Virus (RSV) Vaccine Pt: or over 60 yrs (1 - 1-dose 75+ series) 09/01/2023 INFLUENZA VACCINE (#1) 2024 06/13/2022, 2013 DEPRESSION SCREENING 05/07/2024 01/08/2024 MEDICARE AWV ? CALENDAR YEAR 2024 MAMMOGRAM 07/28/2024 07/28/2022, 07/06, 09/13/2018, Additional history exists HEPATITIS C SCREENING Completed 06/27/2021 BONE DENSITY TESTING Completed 07/28/2022 HIB VACCINE Aged Out No longer eligi ble based on patient's age to complete this topic HPV VACCINE Aged Out No longer eligi ble based on patient's age to complete this topic MENINGOCOCCAL (Group B) VACCINE Aged Out No longer eligible based on patient's age to complete this topic MENINGOCOCCAL VACCINE Aged Out No keith ty eligible based on patient's age to complete this topic Goals Goal Patient Goal Type Associated Problems Recent Progress Patient-Stated? Author Medication Management General On track( 024 1:12 PM CUSTOMER CARE PROFESSIONAL) No Brian Vivas, RN Note: Expected end date: Interventions: Take all medications as prescribed Let your doctor know right away about any changes in your medications Make sure to request a refill of your medication at least one week prior to your last dose Medication Management General On track( 023 1:22 PM CUSTOMER CARE PROFESSIONAL) No Jess Renee, RN Note: Expected end date: ongoing Interventions: Take all medications as prescribed Let your doctor know right away about any changes in your medications Make sure to request a refill of your medication at least one week prior to your last dose Procedures Procedure Name Priority Date/Time Associated Diagnosis Comments HEPATITIS C ANTIBODY Routine 06/27/2021 2:54 PM CUSTOMER CARE PROFESSIONAL Chronic viral hepatitis B Fatty liver (EtOH + COLÓN risks) from Last 3 Months or Most Recently Relevant to Health Maintenance Results * HEPATITIS C ANTIBODY (06/27/2021 2:54 PM CUSTOMER CARE PROFESSIONAL) Hepatitis C Antibody Non-react dickson Non-reac tive 06/27/2021 4:17 PM CUSTOMER CARE PROFESSIONAL [facility] Comment:Hepatitis C Antibody screen indicates no serologic evidence of past or current infection with Hepatitis C Virus. Patients with unexplained liver disease who are immunocompromised or suspected of having acute Hepatitis C infection may benefit from Nucleic Acid Test ([facility]) for Hepatitis C Viral RNA to confirm Hepatitis C status. Blood BLOOD SPECIMEN / Unknown Lab Venipuncture / Unknown 06/27/2021 2:54 PM CUSTOMER CARE PROFESSIONAL 06/27/2021 3:20 PM CUSTOMER CARE PROFESSIONAL Wesley Johnson MD LAB - CHEM ISTRY ORDERABLES [facility] [address] [place] [address], [facility] [phone] from Last 3 Months or Most Recently Relevant to Health Maintenance Care Teams Retail Service Technician Relationship Specialty Start Date End Date Gabino Mckay MD [address] [place] [phone] PCP - General Family Medicine 06/25/23
--- OUTSIDE RECORDS SUMMARY | 2024-05-29 15:51 | XMS_ITS | Referral Summary ---
Author Organization [facility] [employer] Address [address] [address] Care Team Providers Care Mosaic Tile Maker Name Role Phone Gabino Mckay MD Primary Care Provider [phone] Source Comments [facility],non-owned Affiliates and Associated Physician Practices is amultiple site organization consisting of ambulatory clinics and hospital sitesin [place], [place], [place] and [place]. This disclosure is being madepursuant to the Care Everywhere program and may not contain all information available regarding this patient. Last updated 18.[facility] [employer] Allergies Active Allergy Reactions Criticality Noted Date [...] treated Coronary artery disease 04/26/2020 Overview (04/26/2020): MS and coronary stent about 2009. Chronic viral [...] Sex Assigned at Female 06/25/2023 1:33 PM AEROBICS INSTRUCTOR Gender Identity Female 06/25/2023 1:33 PM AEROBICS INSTRUCTOR Sexual Orientation Straight 06/25/2023 1: 33 PM AEROBICS INSTRUCTOR Last Filed Vital Signs Vital Sign Reading Time Taken Comments Blood Pressure 125/79 06/25/2023 1:17 PM AEROBICS INSTRUCTOR Pulse 73 06/25/2023 1:17 PM AEROBICS INSTRUCTOR Temperature 36.6 ??C (97.8 ??F) 06/25/2023 1:17 PM CS T Respiratory Rate 12 07/03/2022 1:09 PM AEROBICS INSTRUCTOR Oxygen Saturation 99% 06/25/2023 1:17 PM AEROBICS INSTRUCTOR Inhaled Oxygen Concentration - - Weight 75.3 kg (166 lb) 01/08/2024 2:52 PM CDT Height 162.6 cm (5' 4 ) 01/08/2024 2:52 PM CDT Body Mass Index 28.49 01/08/2024 2:52 PM CDT Plan of Treatment Upcoming Encounters Date Type Department Care Team (Late st Contact Info) Description 06/23/2024 1:00 PM AEROBICS INSTRUCTOR Office Visit [facility] [address] [place] [address], [place] [id number] Wesley Johnson MD [address] [place] [address] [place] [address] Goals Goal Patient Goal Type Associated Problems Recent Progress Patient-Stated? Author Medication Management General On track( 024 1:12 PM AEROBICS INSTRUCTOR) No Brian Vivas, RN Note: Expected end date: Interventions: Take all medications as prescribed Let your doctor know right away about any changes in your medications Make sure to request a refill of your medication at least one week prior to your last dose Medication Management General On track( 023 1:22 PM AEROBICS INSTRUCTOR) No Jess Renee, RN Note: Expected end date: ongoing Interventions: Take all medications as prescribed Let your doctor know right away about any changes in your medications Make sure to request a refill of your medication at least one week prior to your last dose Procedures Procedure Name Priority Date/Time Associated Diagnosis Comments HEPATITIS C ANTIBODY Routine 06/27/2021 2:54 PM AEROBICS INSTRUCTOR Chronic viral hepatitis B Fatty liver (EtOH + COLÓN risks) from Last 3 Months or Most Recently Relevant to Health Maintenance Results * HEPATITIS C ANTIBODY (06/27/2021 2:54 PM AEROBICS INSTRUCTOR) Hepatitis C Antibody Non-react dickson Non-reac tive 06/27/2021 4:17 PM AEROBICS INSTRUCTOR [facility] [place] [employer] Comment:Hepatitis C Antibody screen indicates no serologic evidence of past or current infection with Hepatitis C Virus. Patients with unexplained liver disease who are immunocompromised or suspected of having acute Hepatitis C infection may benefit from Nucleic Acid Test (SALINAS) for Hepatitis C Viral RNA to confirm Hepatitis C status. Blood BLOOD SPECIMEN / Unknown Lab Venipuncture / Unknown 06/27/2021 2:54 PM AEROBICS INSTRUCTOR 06/27/2021 3:20 PM AEROBICS INSTRUCTOR Wesley Johnson MD LAB - CHEM ISTRY ORDERABLES [facility] [address] [place] [address] [phone] from Last 3 Months or Most Recently Relevant to Health Maintenance Care Teams Mosaic Tile Maker Relationship Specialty Start Date End Date Gabino Mckay MD [address] [place] [address] PCP - General Family Medicine 06/25/23
--- OUTSIDE RECORDS SUMMARY | 2024-05-29 15:51 | XMS_ITS | Encounter Summary ---
Author Organization [facility] Address [address] [place] [address] Phone Care Team Providers Care Picker Tender Helper Name Role Phone Debra Reid MD Primary Care Provider Yogi Greene DO Primary Care Provider Wesley Henderson MD Unavailable Gabino Mckay MD Primary Care Provider [phone] Emiliano Fagan MD Unavailable Bing Lau APRN Primary Care Provider [phone] Reason for Visit * Reason Comments Medication Refill Encounter Details Date Type Department Care Team (Late st Contact Info) Description 09/07/2022 Refill [facility] - [facility] [address] [place] [address] Debra Reid MD [address] [place] [address] Medication Refill Social History Tobacco Use Types Packs/Day Years Used Date Smoking Tobacco: Former Cigarettes 0 05/10/1965 - 05/10/1990 Smokeless Tobacco: Never Alcohol Use Standard Drinks/Week Comments Yes 0 (1 standard drink = 0.6 oz pur e alcohol) occassional PHQ-2 Answer Date Recorded PHQ-2 Score 0 01/18/2019 Comments No Sex and Gender Information Value Date Recorded Sex Assigned at Not on file Legal Sex Female 8:51 PM CDT Gender Identity Not on file Sexual Orientation Not on file documented as of this encounter Miscellaneous Notes * Telephone Encounter - [place] Marieanna Worrell RN - 09/08/2022 8:05 AM CDT Medication failed the protocol, provider to review and approve the medication order if appropriate. Requested Prescriptions Pending Prescriptions Disp Refills lovastatin (MEVACOR) 20 MG Tablet [Pharmacy Med Name: LOVASTATIN TAB 20MG] 90 Tablet 2 Sig: TAKE 1 TABLET DAILY Hmg CoA Reductase Inhibitors Protocol Failed - 09/07/2022 7:26 PM Failed - Lipid panel in past 12 months No results found for: LDL, HDLCHOLESTE, CHOLESTEROL, TRIGLYCRIDES, VLDL, CHDL, HDLNON Passed - Visit with relevant provider in past 12 months or upcoming 90 days Recent Visits Date Type Provider Dept 06/13/22 Office Visit Debra Reid MD [facility] Showing recent visits within past 365 days and meeting all other requirements Future Appointments No visits were found meeting these conditions. Showing future appointments within next 90 days and meeting all other requirements lisinopril (PRINIVIL, ZESTRIL) 20 MG Tablet [Pharmacy Med Name: LISINOPRIL TAB 20MG] 90 Tablet 2 Sig: TAKE 1 TABLET DAILY SCARLET Inhibitors Protocol Failed - 09/07/2022 7:26 PM Failed - Serum potassium on record in past 12 months POTASSIUM Date Value Ref Range Status 08/18/2021 4.4 3.5 - 5.1 mmol/L Final Failed - GFR on record in past 12 months GFR, EST. NONAFRICAN Date Value Ref Range Status 08/18/2021 59 (L) >=60 Final Passed - Blood pressure on record in past 12 months Clinician-entered: BP Readings from Last 3 Encounters: 06/13/22 162/82 06/01/22 (!) 170/92 08/30/21 147/83 Patient-entered: No data recorded Passed - Visit with relevant provider in past 12 months or upcoming 90 days Recent Visits Date Type Provider Dept 06/13/22 Office Visit Debra Reid MD [facility] Showing recent visits within past 365 days and meeting all other requirements Future Appointments No visits were found meeting these conditions. 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 Office Visit [facility] [address] [place] [address] Emiliano Fagan MD [address] [place] [address] Discharge Disposition: Discharged to home or Selfcare documented as of this encounter Visit Diagnoses Not on filedocumented in this encounter Additional Health Concerns Assessment Noted Time PHQ-9 Depression Total Score: 0 07/26/19 19 10:00 AM CDT documented as of this encounter Care Teams Picker Tender Helper Relationship Specialty Start Date End Date Debra Reid MD [address] [place] [address] PCP - General Family Medicine 04/05/15 05/28/23 Yogi Greene DO [facility] [facility] [place] [address] PCP - General Internal Medicine 05/29/23 07/04/23 Gabino Mckay MD [address] [place] [address] PCP - General Family Medicine 07/05/23 04/09/24 Bing Lau APRN [address] [place] [address] PCP - General Advanced Practice Nurse 04/10/24 Wesley Henderson MD [address] [address] Gastroenterology 06/25/23 Emiliano Fagan MD [address] [place] [address] Consulting Physician Medical Oncology 05/31/23 documented as of this encounter
--- OUTSIDE RECORDS SUMMARY | 2024-05-29 15:51 | XMS_ITS | Clinical Summary ---
Author Organization [facility] Address [address], [address] [address] Phone Care Team Providers Care Silver Miner Name Role Phone Wesley Henderson MD Unavailable Emiliano Fagan MD Unavailable [phone] Bing Lau APRN Primary Care Provider [phone] Allergies Active Allergy Reactions Criticality Noted Date Comments Morphine Vomiting 05/24/2020 Medications lovastatin (MEVACOR) 20 MG Tablet TAKE 1 TABLET DAILY 90 Tablet 2 09/12/19 Active lisinopril (PRINIVIL, ZESTRIL) 20 MG Tablet TAKE 1 TABLET DAILY 90 Tablet 2 09/12/19 23 Active Additional Information Patient taking differently: EVERY MORNING, Reported on 05/29/2024 Aspirin Low Dose 81 MG Tablet Delayed Response TAKE 1 TABLET DAILY 100 Tablet 12/27/19 23 Active Additional Information Patient not taking.Reported on 05/29/2024 pantoprazole (PROTONIX) 40 MG Tablet Delayed Response TAKE 1 TABLET DAILY 90 Tablet 12/27/19 23 Active traMADol (ULTRAM) 50 MG TabletIndications: Osteoarthritis of right knee, unspecified osteoarthritis type Take 1-2 Tablets by mouth every 6 hours as needed for Severe pain. 12 Tablet 11/11/19 24 Active allopurinol (ZYLOPRIM) 100 MG Tablet Take 100 mg by mouth daily. Active Vitamin D3 (cholecalciferol) 1000 UNIT Tablet daily. 025 Discontin ued(Thera py completed ) Active Problems Problem Noted Date Diagnosed Date High blood pressure 06/08/2016 Dyslipidemia 06/08/2016 Cholelithiasis with acute cholecystitis GERD (gastroesophageal reflux disease) Chronic viral hepatitis B wi thout delta agent and without coma Overview (03/02/2015): Inactive carrier state with normal liver functions at this point Colon polyp with mild dysplasia Overview (03/02/2015): Her last colonoscopy was in 2010 Fatty liver CLL (chronic lymphocytic leukemia) Cancer Staging:Clinical:Modified Amin Stage II(Modified Amin risk: Intermediate, Lymphocytosis: Present, Adenopathy: Present, Organomegaly: Present, Anemia: Absent, Thrombocytopenia: Absent) - Signed by Emiliano Fagan MD on 03/01/2021 Parotid mass Encounters Date Type Department Care Team Description 05/29/2024 9:40 AM AUTO TRAVEL COUNSELOR Office Visit [facility] Oncology Services [address] [place] [address] Emiliano Fagan MD Chronic viral hepatitis B without delta agent and without coma (HCC) (Primary Dx); CLL (chronic lymphocytic leukemia) (HCC); Fatty liver Discharge Disposition: Discharged to home or Selfcare 05/29/2024 Travel 04/10/2024 7:11 AM AUTO TRAVEL COUNSELOR - 04/10/2024 11:59 PM AUTO TRAVEL COUNSELOR Hospital Encounter [facility] Ultrasound [address] [place] [address] Wesley Henderson MD Discharge Disposition: Discharged to home or Selfcare 04/10/2024 Travel 03/25/2024 Transcribe Orders [facility] Patient Access Admitting [address] [place] [address] Wesley Henderson MD Chronic viral hepatitis B (HCC) (Primary Dx); Fatty liver 03/25/2024 Travel from Last 3 Months Immunizations Immunization Administration Dates Next Due Hepatitis A Vaccine 04/05/2015,09/30/2014 Hepatitis B Vaccine 12/11/2019, 5,06/18/2014,2014,05/18/2014 Influenza Vaccine greater than 3 yrs 01/05/2014 Influenza Vaccine, Quadrivalent, PF 06/13/2022 Influenza, High-dose, Quadrivalent 03/07/2021 Influenza, Seasonal, Injecta ble, Undefined 01/05/2014 PUR HEP A ADULT IM 04/05/2015 PUR PCV-13 12/08/2015 Pneumococcal Vaccine - 13 Valent 12/08/2015 Pneumococcal Vaccine Adult - 23 Valent 04/09/2017,02/13/2014 TD VACCINE 11/28/2010 Family History Medical History Relation Name Comments Heart Attack Father Heart Disease Father Other-comment Maternal Grandmother bleedi ng ulcer Arthritis Mother Relation Name Status Comments Father Maternal Grandmother Mother Social History Tobacco Use Types Packs/Day Years Used Date Smoking Tobacco: Former Cigarettes 0 05/10/1965 - 05/10/1990 Smokeless Tobacco: Never Tobacco Cessation:Counseling Given: Not Answered Alcohol Use Standard Drinks/Week Comments Yes 0 (1 standard drink = 0.6 oz pur e alcohol) occassional PHQ-2 Answer Date Recorded PHQ-2 Score 0 01/18/2019 Comments No Sex and Gender Information Value Date Recorded Sex Assigned at Not on file Legal Sex Female 8:51 PM CDT Gender Identity Not on file Sexual Orientation Not on file Last Filed Vital Signs Vital Sign Reading Time Taken Comments Blood Pressure 144/77 05/29/2024 10:09 AM AUTO TRAVEL COUNSELOR Pulse 68 05/29/2024 10:09 AM AUTO TRAVEL COUNSELOR Temperature 36.8 ??C (98.2 ??F) 05/29/2024 10:[address] Respiratory Rate 18 05/29/2024 10:09 AM AUTO TRAVEL COUNSELOR Oxygen Saturation 99% 05/29/2024 10:09 AM AUTO TRAVEL COUNSELOR Inhaled Oxygen Concentration - - Weight 75.8 kg (167 lb 3.2 oz) 05/29/2024 10:09 AM AUTO TRAVEL COUNSELOR Height 162.6 cm (5' 4 ) 05/29/2024 10:09 AM AUTO TRAVEL COUNSELOR Body Mass Index 28.7 05/29/2024 10:09 AM AUTO TRAVEL COUNSELOR Plan of Treatment Upcoming Encounters Date Type Department Care Team (Late st Contact Info) Description 06/01/2025 8:20 AM AUTO TRAVEL COUNSELOR Office Visit [facility] Oncology Services [address] [place] [address] Emiliano Fagan MD [address] [place] [address] Discharge Disposition: Discharged to home or Selfcare Health Maintenance Due Date Last Done Comments TdaP Immunization 1950 Zoster Immunization (1 of 2) 09/01/1967 Cologuard 1998 Immunochemical Fecal Occult Blood 1998 Respiratory Syncytial Virus (RSV) Immunization (Adult) (1 - 1-dose 75+ series) 09/01/2023 Influenza Immunization (#1) 2024 02/0 11/2022, 03/07/2021, 01/05/2014 SARS-COV-2 Immunization ( season) 2024 08/30/2021, 03/07/2021, 07/26/2020, Additional history exists DEXA Bone Density 07/28/2024 07/28/2022 Colonoscopy 07/09/2033 07/10/2023, 05/07, 07/22/2015, Additional history exists Colorectal Cancer Screening 07/09/2033 07/10/2023, 05/07, 07/22/2015, Additional history exists Pneumococcal Immunization (50+ years) Completed 04/09/2017, 12/08/2015, 12/08/2015, Additional history exists Pneumococcal Immunization Combined Discontinued 04/09/2017, 12/08/2015, 12/08/2015, Additional history exists Hepatitis B Immunization Completed 020, 06/18/2014, 06/18/2014, Additional history exists Hepatitis C Virus (HCV) Screening Completed 06/27/2021, 09/10/2017 Mammogram Discontinued 07/28/2022, 09/04, 12/21/2015 Meningococcal Immunization (ACWY) Aged Out No longer eligible based on patient's age to complete this topic Rotavirus Immunization Aged Out No lo nger eligible based on patient's age to complete this topic Procedures Procedure Name Priority Date/Time Associated Diagnosis Comments TRIIODOTHYRININE (T3) TOTAL 05/27/2024 12:00 AM AUTO TRAVEL COUNSELOR LIPID PANEL 05/27/2024 12:00 AM AUTO TRAVEL COUNSELOR COMPLETE BLOOD COUNT (CBC) WITH DIFF Routine 05/27/2024 12:00 AM AUTO TRAVEL COUNSELOR CLL (chronic lymphocytic leukemia) (HCC) CMP (COMPREHENSIVE METABOLIC PANEL) Routine 05/27/2024 12:00 AM AUTO TRAVEL COUNSELOR CLL (chronic lymphocytic leukemia) (HCC) THYROXINE (T4) FREE 05/27/2024 1 2:00 AM AUTO TRAVEL COUNSELOR THYROID STIMULATING HORMONE (TSH) 05/27/2024 12:00 AM AUTO TRAVEL COUNSELOR US ABDOMEN LIMITED LEVEL 3 THREE ORGAN Routine 04/10/2024 7:32 AM AUTO TRAVEL COUNSELOR Chronic viral hepatitis B (HCC) Fatty liver ALPHA FETOPROTEIN, TUMOR MARKER Today 03/25/2024 8:00 AM AUTO TRAVEL COUNSELOR Hepatitis B carrier (HCC) MISCELLANEOUS TEST ([place]) Today 03/25/2024 8:00 AM AUTO TRAVEL COUNSELOR Hepatitis B carrier (HCC) [facility] BONE DENSITOMETRY AXIAL SKELETON Routine 07/28/2022 9:04 AM CDT Screening for osteoporosis Asymptomatic menopausal state WILFREDO SCREENING BILATERAL DIGITAL W CAD W DANIA Routine 07/28/2022 9:00 AM CDT Encounter for screening mammogram for breast cancer Screening for osteoporosis HEPATITIS C ANTIBODY Routine 09/10/2017 6:54 AM CDT Chronic viral hepatitis B without delta agent and without coma (HCC) HM COLONOSCOPY Routine 12/26/2010 from Last 3 Months or Most Recently Relevant to Health Maintenance Results * THYROXINE (T4) FREE (05/27/2024 12:00 AM AUTO TRAVEL COUNSELOR) 05/27/2024 us Provider Scan CHEMISTRY ORDERABLES Final Resul t SCAN * THYROID STIMULATING HORMONE (TSH) (05/27/2024 12:00 AM AUTO TRAVEL COUNSELOR) 05/27/2024 us Provider Scan CHEMISTRY ORDERABLES Final Resul t Performing Organization Address [facility] de Phone Number SCAN * TRIIODOTHYRININE (T3) TOTAL (05/27/2024 12:00 AM AUTO TRAVEL COUNSELOR) 05/27/2024 us Provider Scan CHEMISTRY ORDERABLES Final Resul t Performing Organization Address [facility] de Phone Number SCAN * LIPID PANEL (05/27/2024 12:00 AM AUTO TRAVEL COUNSELOR) CHOLESTEROL 221 SCAN HDL CHOLESTEROL 53 SCAN LDL 125 SCAN 05/27/2024 us Provider Scan CHEMISTRY ORDERABLES Final Resul t Performing Organization Address [facility] de Phone Number SCAN * CMP (COMPREHENSIVE METABOLIC PANEL) (05/27/2024 12:00 AM AUTO TRAVEL COUNSELOR) Blood us Emiliano Fagan MD CHEMISTRY ORDERABLES Fin al Result Performing Organization [facility] de Phone Number SCAN * COMPLETE BLOOD COUNT (CBC) WITH DIFF (05/27/2024 12:00 AM AUTO TRAVEL COUNSELOR) Blood us Emiliano Fagan MD HEMATOLOGY ORDERABLES Fi nal Result Performing Organization [facility] de Phone Number SCAN * US ABDOMEN LIMITED LEVEL 3 THREE ORGAN (04/10/2024 7:32 AM AUTO TRAVEL COUNSELOR) Anatomical Region Laterality Modality Abdomen N/A Ultrasound 04/14/2024 7:44 AM AUTO TRAVEL COUNSELOR Impressions 04/14/2024 7:47 AM AUTO TRAVEL COUNSELOR IMPRESSION: Hepatic steatosis and coarsened hepatic echotexture which can be seen with chronic liver disease. ??No hepatic mass is identified. Narrative 04/14/2024 7:47 AM AUTO TRAVEL COUNSELOR EXAM DESCRIPTION: US ABDOMEN LIMITED LEVEL 3 THREE ORGAN REASON FOR STUDY: Chronic viral hepatitis B ?? TECHNIQUE: Ultrasound of the right upper quadrant of the abdomen was performed with grayscale and color doppler interrogation. COMPARISON: Ultrasound 08/30/2021 FINDINGS: LIVER: ??Increased echogenicity and mildly coarsened echotexture. ??The liver measures 15.3 cm length. ??No mass is identified. ?The main portal vein is patent with hepatopetal flow. GALLBLADDER: Absent. ??There is a 1.5 x 1.8 x 2 cm hypoechoic collection at the gallbladder fossa which measured 1.4 x 1.8 x 1.2 cm on prior. ??This may represent a cystic duct remnant. BILIARY: The common duct measures 5.1 mm diameter. PANCREAS: Visualized portions of the pancreas are within normal limits. Portions of the pancreatic body and tail are obscured due to bowel gas. RIGHT KIDNEY: ??No hydronephrosis. ?? OTHER: ??No other significant findings. THIS IS AN ELECTRONICALLY VERIFIED FINAL REPORT 04/14/2024 7:44 AM - Electronically signed by ??Fabrizio Mcgraw M.D. JR: D: ??04/14/2024 7:44 AM T: ??04/14/2024 7:44 AM Report ID: [id number] Reading Location: ??[id number] Procedure Note Fabrizio Mcgraw MD - 04/14/2024 EXAM DESCRIPTION: US ABDOMEN LIMITED LEVEL 3 THREE ORGAN REASON FOR STUDY: Chronic viral hepatitis B TECHNIQUE: Ultrasound of the right upper quadrant of the abdomen was performed with grayscale and color doppler interrogation. COMPARISON: Ultrasound 08/30/2021 FINDINGS: LIVER: Increased echogenicity and mildly coarsened echotexture. The liver measures 15.3 cm length. No mass is identified. The main portal vein is patent with hepatopetal flow. GALLBLADDER: Absent. There is a 1.5 x 1.8 x 2 cm hypoechoic collection at the gallbladder fossa which measured 1.4 x 1.8 x 1.2 cm on prior. This may represent a cystic duct remnant. BILIARY: The common duct measures 5.1 mm diameter. PANCREAS: Visualized portions of the pancreas are within normal limits. Portions of the pancreatic body and tail are obscured due to bowel gas. RIGHT KIDNEY: No hydronephrosis. OTHER: No other significant findings. THIS IS AN ELECTRONICALLY VERIFIED FINAL REPORT 04/14/2024 7:44 AM - Electronically signed by Fabrizio Mcgraw M.D. JR: Report ID: [id number] Reading Location: [place] [address] IMPRESSION: Hepatic steatosis and coarsened hepatic echotexture which can be seen with chronic liver disease. No hepatic mass is identified. Wesley Henderson MD [facility] ORDERABLES Final Result * MISCELLANEOUS TEST ([place]) (03/25/2024 8:00 AM AUTO TRAVEL COUNSELOR) RESULT SEE NOTE 03/27/2024 01:01 PM 03/27/2024 12:58 PM AUTO TRAVEL COUNSELOR [facility] Blood Venipuncture / Unknown 03/25/2024 8:00 AM AUTO TRAVEL COUNSELOR 03/25/2024 8:49 AM AUTO TRAVEL COUNSELOR Narrative [facility] - 03/27/2024 12:58 PM AUTO TRAVEL COUNSELOR Test ?Result ? Flag ??Unit ?? RefValue HBV DNA Detect/Quant, ? Undetected ? IU/mL ??Undetected ??S Result in log IU/mL is Undetected. ADDITIONAL INFORMATION The quantification range of this assay is 10 to 1,000,000,000 IU/mL (1.00 log to 9.00 log IU/mL). Testing was performed using the kris HBV test ([employer] Test Performed by: [place] [address] Human Resource Assistant: Gill Pickard Ph.D.; CLIA# [id number] us Not On File Provider LAB SEND OUTS Final Resul t [facility] US * ALPHA FETOPROTEIN, TUMOR MARKER (03/25/2024 8:00 AM AUTO TRAVEL COUNSELOR) ALPHA FETOPROTEIN 4.0 0.0 - 8.8 ng/mL 03/25/2024 9:32 PM AUTO TRAVEL COUNSELOR [facility] Blood Venipuncture / Unknown 03/25/2024 8:00 AM AUTO TRAVEL COUNSELOR 03/25/2024 8:50 AM AUTO TRAVEL COUNSELOR us Not On File Provider CHEMISTRY ORDERABLES Final Result Performing Organization Address City/[facility]/ZIP Co de Phone Number [facility] [address] [place] [address], [place] * [facility] BONE DENSITOMETRY AXIAL SKELETON (07/28/2022 9:04 AM CDT) Anatomical Region Laterality Modality BODY N/A Computed Radiogr aphy 07/28/2022 3:53 PM CDT Impressions 07/28/2022 3:56 PM CDT IMPRESSION: ?? Normal bone mineral density. REFERENCE: Bone mineral density: ? Normal (T-score above or = -1.0) ? Low bone mass ??(T-score between -1.0 and -2.5) replaces the previously used term osteopenia ? Osteoporosis (T-score = or below -2.5) Medical evaluation for secondary causes of low bone mineral density may be appropriate. FRAX is a World Health Organization validated fracture risk assessment tool that calculates a person's 10 year probability of a major osteoporosis related fracture and hip fracture. ??According to the National Osteoporosis Foundation guidelines, postmenopausal women and men age 50 or older with low bone mass and a 10 year probability of a major osteoporosis related fracture = or greater than 20% or a 10 year probability of a hip fracture = or greater than 3% should be considered for treatment. For further information, including treatment recommendations, please refer to the 2013 ISCD Official Positions (http://www.iscd.org) and the NOF's Clinician's Guide to Prevention and Treatment of Osteoporosis (http://www.nof.org/professionals/clinical-guidelines) Narrative 07/28/2022 3:56 PM CDT EXAM DESCRIPTION: ?? [facility] BONE DENSITOMETRY AXIAL SKELETON REASON FOR STUDY: ?71 y/o ?? year old ?? F ??with given history of screening. Facialist/Model: ?? [employer] (S/N [id number]) CLINICAL INFORMATION: Current height: ??64 ??inches ? Maximum height: ??64 ??inches ? Weight: ??169 ??pounds Risk factors: ??None COMPARISON: None available. FINDINGS: AP LUMBAR SPINE L1-L4: Total BMD is ??1.561 ??g/cm2 T-score is ??3.0 ?? LEFT HIP: Total BMD is ??1.090 ??g/cm2 T-score is ??0.7 ?? Femoral neck BMD is ??1.067 ??g/cm2 T-score is ??0.2 ?? FRAX: FRAX not reported due to T-scores of hip, femoral neck and/or spine being at or above -1.0 (Normal). THIS IS AN ELECTRONICALLY VERIFIED FINAL REPORT 07/28/2022 3:53 PM - Electronically signed by ??Mateusz Wright M.D. BC: MARTHA D: ??07/28/2022 3:53 PM T: ??07/28/2022 3:53 PM Report ID: [id number] Reading Location: ??[id number] Procedure Note Mateusz Wright MD - 07/28/2022 EXAM DESCRIPTION: [facility] BONE DENSITOMETRY AXIAL SKELETON REASON FOR STUDY: 71 y/o year old F with given history of screening. Facialist/Model: [employer] (S/N [id number]) CLINICAL INFORMATION: Current height: 64 inches Maximum height: 64 inches Weight: 169 pounds Risk factors: None COMPARISON: None available. FINDINGS: AP LUMBAR SPINE L1-L4: Total BMD is 1.561 g/cm2 T-score is 3.0 LEFT HIP: Total BMD is 1.090 g/cm2 T-score is 0.7 Femoral neck BMD is 1.067 g/cm2 T-score is 0.2 FRAX: FRAX not reported due to T-scores of hip, femoral neck and/or spine being at or above -1.0 (Normal). THIS IS AN ELECTRONICALLY VERIFIED FINAL REPORT 07/28/2022 3:53 PM - Electronically signed by Mateusz Wright M.D. BC: MARTHA Report ID: [id number] Reading Location: [place] [address] IMPRESSION: Normal bone mineral density. REFERENCE: Bone mineral density: Normal (T-score above or = -1.0) Low bone mass (T-score between -1.0 and -2.5) replaces the previously used term osteopenia Osteoporosis (T-score = or below -2.5) Medical evaluation for secondary causes of low bone mineral density may be appropriate. FRAX is a World Health Organization validated fracture risk assessment tool that calculates a person's 10 year probability of a major osteoporosis related fracture and hip fracture. According to the National Osteoporosis Foundation guidelines, postmenopausal women and men age 50 or older with low bone mass and a 10 year probability of a major osteoporosis related fracture = or greater than 20% or a 10 year probability of a hip fracture = or greater than 3% should be considered for treatment. For further information, including treatment recommendations, please refer to the 2013 ISCD Official Positions (http://www.iscd.org) and the NOF's Clinician's Guide to Prevention and Treatment of Osteoporosis (http://www.nof.org/professionals/clinical-guidelines) us Debra SINGLETON DEXA ORDERABLES Final R esult * WILFREDO SCREENING BILATERAL DIGITAL W CAD W DANIA (07/28/2022 9:00 AM CDT) Anatomical Region Laterality Modality breast Bilateral Mammography 07/28/2022 8:17 AM CDT Narrative 07/31/2022 7:23 AM CDT - WILFREDO SCREENING BILATERAL DIGITAL W CAD W DANIA BILATERAL DIGITAL SCREENING MAMMOGRAM 3D/2D WITH CAD WITH MEDIOLATERAL OBLIQUE CRANIOCAUDAL: 07/28/2022 The study was acquired using digital technology and interpreted from soft copy. Current study was also evaluated with ICAD version 7.2. 2D digital mammographic views, as well as 3D digital tomosynthesis were performed in the CC and MLO projections. ?? CLINICAL: Routine screening. Patient has no complaints. No personal history of cancer. No family history of breast cancer. ?? COMPARISONS: Comparison is made to exams dated: ??09/13/2018, 12/21/2015, and 02/02/2014 [facility]. ?? BREAST TISSUE:There are scattered fibroglandular densities in both breasts. ?? FINDINGS: There is a focal asymmetry in the right breast at 8 o'clock middle depth. ?? No other significant masses, calcifications, or other findings are seen in either breast. ?? IMPRESSION: BI-RAD 0 ADDITIONAL IMAGING EVALUATION NEEDED The focal asymmetry in the right breast is indeterminate. ?? An immediate follow-up is recommended. ?? A letter will be sent to the patient with these results. Electronically signed by: Shahida Parish M.D. ? ll/penrad:07/28/2022 16:04:07 ?? Professor Of Astronomy(s): Winnie ?? RT Peter(Cesilia)(M), [facility] letter sent: Additional Imaging ?? Reading location: [facility] BI-RADS: 0 Additional Imaging Evaluation Needed Procedure Note Shahida Parish MD - 07/31/2022 - WILFREDO SCREENING BILATERAL DIGITAL W CAD W DANIA BILATERAL DIGITAL SCREENING MAMMOGRAM 3D/2D WITH CAD WITH MEDIOLATERAL OBLIQUE CRANIOCAUDAL: 07/28/2022 The study was acquired using digital technology and interpreted from soft copy. Current study was also evaluated with ICAD version 7.2. 2D digital mammographic views, as well as 3D digital tomosynthesis were performed in the CC and MLO projections. CLINICAL: Routine screening. Patient has no complaints. No personal history of cancer. No family history of breast cancer. COMPARISONS: Comparison is made to exams dated: 09/13/2018, 12/21/2015, and 02/02/2014 [facility]. BREAST TISSUE:There are scattered fibroglandular densities in both breasts. FINDINGS: There is a focal asymmetry in the right breast at 8 o'clock middle depth. No other significant masses, calcifications, or other findings are seen in either breast. IMPRESSION: BI-RAD 0 ADDITIONAL IMAGING EVALUATION NEEDED The focal asymmetry in the right breast is indeterminate. An immediate follow-up is recommended. A letter will be sent to the patient with these results. Electronically signed by: Shahida gordon/berhane:07/28/2022 16:04:07 Professor Of Astronomy(s): RT Melissa(R)(M), [facility] letter sent: Additional Imaging Reading location: [facility] BI-RADS: 0 Additional Imaging Evaluation Needed us Debra Reid MD IMG MAMMO ORDERABLES Final Result * HEPATITIS C ANTIBODY (09/10/2017 6:54 AM CDT) hepatitis C antibody 0.08 <1 S/CO 09/10/2017 9:26 PM CDT [facility] Comment: Signal/Cutoff ratio ??< 0.79 is Nondetected Signal/Cutoff ratio 0.80-0.99 is Grayzone Signal/Cutoff ratio > 0.99 is Detected Supplemental assays are recommended if signal/cutoff ratio is >/=1.00. ??Signal/cutoff ratio result >/= 5.00 is 97% predictive of positivity for recombinant immunoblot assay (RIBA) and will be reported to the [place] Department of Public Health as required. Blood specimen (specimen) Venipuncture / Unknown 09/10/2017 6:54 AM CDT 09/10/2017 10:30 AM CDT us Tawana Fernandes MD CHEMISTRY ORDERABLES Fi nal Result [facility] [address] [place] [address], [place] * HM COLONOSCOPY (12/26/2010) Debra Reid MD PROCEDURE/MINOR SURGICAL OR DERABLES Final Result from Last 3 Months or Most Recently Relevant to Health Maintenance Insurance MEDICARE C [employer] Care Teams Silver Miner Relationship Specialty Start Date End Date Bing Lau APRN [address] [place] [id number] PCP - General Advanced Practice Nurse 04/10/24 Wesley Henderson MD [address] [address] Gastroenterology 06/25/23 Emiliano Fagan MD [address] [place] [address] Consulting Physician Medical Oncology 05/31/23
--- OUTSIDE RECORDS SUMMARY | 2024-05-29 15:51 | XMS_ITS | Encounter Summary ---
Author Organization [facility] Address [address] [place] [address] Care Team Providers Care Mold Polisher Name Role Phone Debra Reid MD Primary Care Provider [phone] Gabino Mckay MD Primary Care Provider [phone] Encounter Details Date Type Department Care Team (Late Contact Info) Description 05/17/2020 Lab Requisition [facility] [address] [place] [address] Gilmer Soto MD [address] [place] [phone] Localized swelling, mass and lump, neck Social History Tobacco Use Types Packs/Day Years Used Date Smoking Tobacco: Former Cigarettes 2 20 Smokeless Tobacco: Never Comments:QUIT 30 YEARS AGO Alcohol Use Standard Drinks/Week Comments Yes 30 (1 standard drink = 0.6 oz pu re alcohol) Sex and Gender Information Value Date Recorded Sex Assigned at Female 06/25/2023 1:33 PM DENTISTRY TEACHER Gender Identity Female 06/25/2023 1:33 PM DENTISTRY TEACHER Sexual Orientation Straight 06/25/2023 1: 33 PM DENTISTRY TEACHER COVID-19 Exposure Response Date Recorded In the last month, have you been in contact with someone who was confirmed or suspected to have Coronavirus / COVID-19? No / Unsure 04/26/2020 1:52 PM DENTISTRY TEACHER documented as of this encounter Plan of Treatment Upcoming Encounters Date Type Department Care Team (Late Contact Info) Description 06/23/2024 1:00 PM DENTISTRY TEACHER Office Visit [facility] [address] [place] [id number] Wesley Johnson MD [address] [place] [address] [place] [address] documented as of this encounter Goals Goal Patient Goal Type Associated Problems Recent Progress Patient-Stated? Author Medication Management General On track( 024 1:12 PM DENTISTRY TEACHER) Brian Horowitz, RN Note: Expected end date: Interventions: Take all medications as prescribed Let your doctor know right away about any changes in your medications Make sure to request a refill of your medication at least one week prior to your last dose documented as of this encounter Procedures Procedure Name Priority Date/Time Associated Diagnosis Comments FLOW CYTOMETRY TISSUE PANEL Routine 05/17/2020 10:10 AM DENTISTRY TEACHER Localized swelling, mass and lump, neck documented in this encounter Results * FLOW CYTOMETRY TISSUE PANEL (05/17/2020 10:10 AM DENTISTRY TEACHER) Case Report Flow Cytometry ?Case: [id number] ? Authorizing Provider: ??Gilmer Soto MD ? Collected: ? 05/17/2020 10:10 AM ? Ordering Location: ? [facility] ? Received: ?05/17/2020 02:16 PM ? Pathologist: ? Davey Moses MD ? Specimen: ?Tissue, Soft Tissue Mass ? 9:41 AM [facility] Final Diagnosis Tissue, soft tissue mass, neck, flow cytometry: - Clonal kappa restricted CD5+ B-cell population detected (~58% of total events) 9:41 AM [facility] Flow Cytometry Interpretation Viability: 100%. [...] cytometry specimen was examined for internal quality control assessor purposes. 9:41 AM [facility] Flow Cytometry Results Differential Result Comment Flow Cell Count /uL 1,000 Total Viability % 100.0 Lymphocytes % 96 Dim CD45 Region % 0 Monocytes % 1 Granulocytes % 2 9:41 AM [facility] Reason for test Localized swelling, mass and lump, neck 784.2 9:41 AM [facility] Client Specimen ID # [id number] 9:41 AM [facility] Number of markers 16 were performed. A-2 Flow CD3 A-4 Flow CD10 A-6 Flow CD20 A-7 Flow CD23 A-12 Flow CD2 A-13 Flow CD4 A-16 Flow CD1a A-3 Flow CD5 A-5 Flow CD19 A-8 Flow CD34 A-9 Flow CD45 A-14 Flow CD7 A-15 Flow CD8 A-17 Flow CD30 A-10 Short+CD19+ A-11 Lambda+CD19+ 1 9:41 AM [facility] Disclaimer Test performed at [facility], [address] [place], [place], [address]. *The established laboratory minimum viability is 70%. [...] high complexity clinical testing. 1 9:41 AM [facility] Embedded Images 1 9:41 AM [facility] Pathology/Cytolo gy TISSUE SPECIMEN / Unknown 05/17/2020 10:10 AM DENTISTRY TEACHER 05/17/2020 2:16 PM DENTISTRY TEACHER Gilmer Soto MD LAB - PATHOLOGY/CYTO LOGY ORDERABLES [facility] [address] [place] [address]. [address] [phone] documented in this encounter Visit Diagnoses Diagnosis Localized swelling, mass and lump, neck Swelling, mass, or lump in head and neck documented in this encounter Care Teams Mold Polisher Relationship Specialty Start Date End Date Debra Reid MD PCP - General 04/23/20 06/24/23 Gabino Mckay MD [address] [place] [id number] PCP - General Family Medicine 06/25/23 documented as of this encounter
== END 2024-05-27 07:53 | disposition home or self-care (01) ==
PROVIDERS: PCP Nurse Practitioner Adult Health; Visit Provider Internal Medicine
DX: C91.10 Chronic lymphocytic leukemia of B-cell type not having achieved remission (principal); I10 Essential (primary) hypertension
CPT/HCPCS: 36415; 80053; 80061; 83615; 83735; 84439; 84443; 84480; 85025

== ENCOUNTER 2025-02-11 10:55 | Outpatient (CLI) | payer MEDICARE, SELFPAY ==
[2025-02-11 19:20] LABS: Alanine Aminotransferase 20 U/L (6-35); Albumin Level 4.4 g/dL (3.5-5.1); Alkaline Phosphatase 64 U/L (38-126); Anion Gap 7 mmol/L (4-12); Aspartate Amino Transferase 54 U/L (14-36); Bilirubin,Total 1.0 mg/dL (0.2-1.3); Blood Urea Nitrogen 20 mg/dL (7-17); Calcium 9.7 mg/dL (8.4-10.2); Carbon Dioxide 26 mmol/L (22-30); Chloride 103 mmol/L (98-107); Cholesterol 237 mg/dL (0-200); Estimated Glomerular Filt Rate 53; Glucose 99 mg/dL (65-110); HDL Direct 49 mg/dL; Potassium 5.2 mmol/L (3.4-5.0); Sodium 136 mmol/L (137-145); Total Protein 7.3 g/dL (6.3-8.2); Triglycerides 160 mg/dL (<150)
[2025-02-11 19:22] LABS: Hematocrit 39.3 % (37.0-47.0); Hemoglobin 12.6 g/dL (12.0-15.0); Immature Granulocyte Percent A 0.1 % (0-0.5); Lymphocytes Absolute Auto 2.34 K/mm3 (0.9-3.2); Mean Corpuscular HGB Conc 32.1 g/dl (32-36); Mean Corpuscular Hemoglobin 31.8 pg (26-34); Mean Corpuscular Volume 99.2 fl (80-100); Nucleated Red Blood Cells Absolute Auto 0.000 K/mm3 (0.0-0.012); Nucleated Red Blood Cells Perc 0.0 % (0.0-0.2); Platelet Count Result 214 k/mm3 (150-375); Red Blood Count 3.96 M/mm3 (4.2-5.4); White Blood Count 6.7 K/mm3 (4.5-10.0)
== END 2025-02-11 10:56 | disposition home or self-care (01) ==
LOC: ANHBWCLAB 10:56
PROVIDERS: PCP Nurse Practitioner Adult Health; Visit Provider Nurse Practitioner Adult Health
DX: I10 Essential (primary) hypertension (principal)
CPT/HCPCS: 36415; 80053; 80061; 85025